=== PATIENT | male | born 1990 | race American Indian/Alaskan Native ===

== ENCOUNTER 2019-07-22 17:09 | Emergency (ER) | payer SELFPAY ==
--- NOTE | 2019-07-22 17:25 | Event Note ---
ED Screening Note Date of service: 07/22/19 Time: 17:23 ED Screening Note: 29 y o presents with muscle tightening while he was at work yesterday and then happened today, states tithening in hands, legs and stomach This initial assessment/diagnostic orders/clinical plan/treatment(s) is/are subject to change based on patients health status, clinical progression and re- assessment by fellow clinical providers in the ED. Further treatment and workup at subsequent clinical providers discretion. Patient/guardian urged not to elope from the ED as their condition may be serious if not clinically assessed and managed. Initial orders include: basic labs ivf?
[2019-07-22 17:48] LABS: Basophils # (Auto) 0.1 K/mm3 (0.0-0.1); Basophils % (Auto) 0.6 % (0.0-1.8); Eosinophils # (Auto) 0.1 K/mm3 (0.0-0.4); Eosinophils % (Auto) 0.7 % (0.0-4.3); Hematocrit 52.5 % (35.5-45.6); Hemoglobin 17.6 gm/dl (11.8-15.2); Lymphocytes # (Auto) 2.5 K/mm3 (1.2-5.4); Lymphocytes % (Auto) 19.7 % (13.4-35.0); Mean Corpuscular HGB Conc 34 % (32-34); Mean Corpuscular Volume 89 fl (84-94); Monocytes % (Auto) 7.8 % (0.0-7.3); Platelet Count 390 K/mm3 (140-440); Red Blood Count 5.89 M/mm3 (3.65-5.03); Red Cell Distribution Width 14.6 % (13.2-15.2)
[2019-07-22 17:59] LABS: Calcium 9.8 mg/dL (8.4-10.2)
[2019-07-22 19:07] LABS: Bilirubin,Urine NEG (Negative); Blood,Urine SM (Negative); Color,Urine Amber (Yellow); Hyaline Casts,Urine 4 /LPF; Mucus,Urine FEW /HPF; Urobilinogen,Urine < 2.0 mg/dL (<2.0)
[2019-07-22] MEDS ORDERED: oxyCODONE /ACETAMINOPHEN 5-325MG TAB PO ONE (20:02)
[2019-07-22] MEDS ORDERED: SODIUM CHLORIDE 0.9% 1000 ML 1,000 ML IV ONE ×3 (20:02→22:52)
[2019-07-22] MEDS ORDERED: POTASSIUM CHLORIDE ER 20 MEQ TAB PO ONE (20:03)
[2019-07-22] MEDS ORDERED: cefTRIAXone/NS 1 GM/50 ML 1 GM/50 ML BAG IV ONE (20:03)
[2019-07-22] MEDS ORDERED: LACTATED RINGERS 1,000 ML IV ONE (22:52)
[2019-07-23 01:51] LABS: Alanine Aminotransferase 50 units/L (7-56); Albumin 3.6 g/dL (3.9-5); BUN/Creatinine Ratio 11; Blood Urea Nitrogen 15 mg/dL (9-20); Calcium 8.1 mg/dL (8.4-10.2); Hemolysis Index 9
--- NOTE | 2019-07-23 02:25 | Emergency Department Report ---
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 Patient denies chest pain, shortness of breath, dizziness, syncope, change in vision, seizures, abdominal pain, hematuria, diarrhea, change in vision or palpitations. MD Complaint: diffuse body aches and muscle cramps -: Sudden, days(s) (2) Location: back, upper extremity, lower extremity Radiation: non-radiation, other (diffuse) Severity scale (0 -10): 7 Quality: aching, sharp, constant Consistency: constant Improves with: none Worsens with: none Associated Symptoms: denies other symptoms, loss of appetite, malaise. denies: confusion, chest pain, cough, diaphoresis, fever/chills, headaches, nausea/vomiting, rash, seizure, shortness of breath, syncope, other Treatments Prior to Arrival: none - Related Data Previous Rx's Medication Instructions Recorded Last Taken Type Acetaminophen [Tylenol] 500 mg PO Q6HR PRN #30 tablet 07/23/19 Unknown Rx Cyclobenzaprine [Flexeril] 10 mg PO Q8H PRN #21 tablet 07/23/19 Unknown Rx cephALEXin [Keflex] 500 mg PO Q8HR #30 cap 07/23/19 Unknown Rx Allergies Allergy/AdvReac Type Severity Reaction Status Date / Time No Known Allergies Allergy Unverified 07/22/19 17:18 ED Review of Systems ROS: Stated complaint: BODY SPASM Other details as noted in HPI Constitutional: denies: chills, fever Eyes: denies: eye pain, eye discharge, vision change ENT: denies: ear pain, throat pain Respiratory: denies: cough, shortness of breath, wheezing Cardiovascular: denies: chest pain, palpitations Endocrine: no symptoms reported Gastrointestinal: denies: abdominal pain, nausea, diarrhea Genitourinary: denies: urgency, dysuria Musculoskeletal: back pain, arthralgia, myalgia. denies: joint swelling Skin: denies: rash, lesions Neurological: denies: headache, weakness, paresthesias Psychiatric: denies: anxiety, depression Hematological/Lymphatic: denies: easy bleeding, easy bruising ED Past Medical Hx - Past Medical History Previous Medical History?: No - Surgical History Past Surgical History?: No - Medications Home Medications: Home Medications Medication Instructions Recorded Confirmed Last Taken Type Acetaminophen [Tylenol] 500 mg PO Q6HR PRN #30 tablet 07/23/19 Unknown Rx Cyclobenzaprine [Flexeril] 10 mg PO Q8H PRN #21 tablet 07/23/19 Unknown Rx cephALEXin [Keflex] 500 mg PO Q8HR #30 cap 07/23/19 Unknown Rx ED Physical Exam - General Limitations: No Limitations General appearance: alert, in no apparent distress - Head Head exam: Present: atraumatic, normocephalic, normal inspection - Eye Eye exam: Present: normal appearance, PERRL, EOMI Pupils: Present: normal accommodation - ENT ENT exam: Present: normal exam, normal orophraynx, mucous membranes moist, TM's normal bilaterally, normal external ear exam - Neck Neck exam: Present: normal inspection, full ROM - Respiratory Respiratory exam: Present: normal lung sounds bilaterally. Absent: respiratory distress, wheezes, rales, rhonchi, chest wall tenderness, accessory muscle use - Cardiovascular Cardiovascular Exam: Present: normal rhythm, tachycardia, normal heart sounds. Absent: systolic murmur, diastolic murmur, rubs, gallop - GI/Abdominal GI/Abdominal exam: Present: soft, normal bowel sounds. Absent: distended, tenderness, guarding, hyperactive bowel sounds, hypoactive bowel sounds, organomegaly - Rectal Rectal exam: Present: deferred - Extremities Exam Extremities exam: Present: normal inspection, full ROM, normal capillary refill - Back Exam Back exam: Present: normal inspection, full ROM, tenderness, muscle spasm, paraspinal tenderness. Absent: CVA tenderness (L) - Neurological Exam Neurological exam: Present: alert, oriented X3, CN II-XII intact, normal gait, reflexes normal - Psychiatric Psychiatric exam: Present: normal affect, normal mood - Skin Skin exam: Present: warm, dry, intact, normal color. 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 In the ED, patient is alert and oriented 3 and is not in distress, tachycardic in triage. Lab test results were reviewed and showed acute leukocytosis of 12,800, acute hypokalemia of 3.0 mmol per liter, elevated creatinine level of 2.0, and CK level of 5879. Patient was treated in the ED for pain and also given normal saline 3 L IV bolus and additional 1 L of lactated Ringer solution IV bolus. Patient also received Klor-Con 40 mEq by mouth 1. These findings were discussed with the ED attending physician Dr. Duff was advised that the patient be hydrated in the ED further and all the labs redrawn to reevaluate any imp rovement in creatinine level as well as in CK levels. On reevaluation, patient's pain and muscle cramps improved significantly. After 4 L of IV fluids, the potassium level normalized to 4.0 mmol per liter, creatinine level also normalized to 1.4, and CK levels 4336. On reevaluation, patient's pain improved significantly and vital signs also stable. Patient was discharged home on pain medications and muscle relaxants and advised to drink plenty of water for the next 2-3 days, and follow-up with his primary care physician in 3-5 days for reevaluation or return to the ED immediately if symptoms get worse. 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 In the ED, patient is alert and oriented 3 and is not in distress, tachycardic in triage. Lab test results were reviewed and showed acute leukocytosis of 12,800, acute hypokalemia of 3.0 mmol per liter, elevated creatinine level of 2.0, and CK level of 5879. Patient was treated in the ED for pain and also given normal saline 3 L IV bolus and additional 1 L of lactated Ringer solution IV bolus. Patient also received Klor-Con 40 mEq by mouth 1. These findings were discussed with the ED attending physician Dr. Duff was advised that the patient be hydrated in the ED further and all the labs redrawn to reevaluate any improvement in creatinine level as well as in CK levels. On reevaluation, patient's pain and muscle cramps improved significantly. After 4 L of IV fluids, the potassium level normalized to 4.0 mmol per liter, creatinine level also normalized to 1.4, and CK levels 4336. On reevaluation, patient's pain improved significantly and vital signs also stable. DC improvements were also discussed with the ED attending physician Dr. Duff who advised that the patient be discharged home with strict instructions to drink plenty of water and to follow-up with his primary care physician in 3-5 days for reevaluation. Patient was discharged home on pain medications and muscle relaxants and advised to drink plenty of water for the next 2-3 days, and follow-up with his primary care physician in 3-5 days for reevaluation or return to the ED immediately if symptoms get worse. - Differential Diagnosis Muscle spasms; Acute Rhabdomyolysis; Acute renal injury; Dehydration Critical care attestation.: If time is entered above; I have spent that time in minutes in the direct care of this critically ill patient, excluding procedure time. ED Disposition Clinical Impression: Acute renal failure due to rhabdomyolysis, Dehydration, Acute urinary tract infection, Acute hypokalemia, Muscle cramping Disposition: DC-01 TO HOME OR SELFCARE Is pt being admited?: No Does the pt Need Aspirin: No Condition: Stable Instructions: Dehydration (ED), Urinary Tract Infection in Men (ED), Rhabdomyolysis (ED) Additional Instructions: Drink plenty of water and take pain medications, mainly Tylenol for pain as needed with muscle relaxants, follow-up with your primary care physician at [facility] in 3-5 days for reevaluation. Return to the ED immediately if his symptoms get worse. Prescriptions: Acetaminophen [Tylenol] 500 mg PO Q6HR PRN #30 tablet PRN Reason: Pain , Severe (7-10) Cyclobenzaprine [Flexeril] 10 mg PO Q8H PRN #21 tablet PRN Reason: Muscle Spasm cephALEXin [Keflex] 500 mg PO Q8HR #30 cap Referrals: [facility] [Outside] - 3-5 Days Forms: Work/School Release Form(ED) Time of Disposition: 03:25 Print Language: TELUGU
[2019-07-23 03:58] VITALS: BP 140/82
== END 2019-07-23 03:56 | disposition home or self-care (01) ==
LOC: ED 17:09
DX: N39.0 Urinary tract infection, site not specified (principal); E86.0 Dehydration; R25.2 Cramp and spasm; E87.6 Hypokalemia; N17.9 Acute kidney failure, unspecified; Z79.899 Other long term (current) drug therapy
CPT/HCPCS: 36415; 80048; 80053; 81001; 82550; 85025; 87086; 99283; J0696; J7030; J7120